=== PATIENT | female | born 1970 | race Two or more races ===

== ENCOUNTER 2017-05-01 13:44 | Inpatient (IN) | payer SELFPAY ==
[~2017-05-01] VITALS: Ht 142.2 cm; Wt 46.2 kg
--- NOTE | ~2017-05-01 | CON ---
[facility] 46 Y [address] ROOM: [place] [address] LOCATION: [facility] ADMIT DATE: 05/01/2017 Consultation DISCHARGE DATE: FAMILY PHYSICIAN: PHYSICIAN, UNKNOWN ATTENDING PHYSICIAN: Parveen Potter REFERRING PHYSICIAN: SOM RAMOS MD REASON FOR CARDIOLOGY CONSULTATION: Bradycardia. HISTORY OF PRESENT ILLNESS: This is a 46-year-old female, patient, who presented to the emergency department with complaints of tonic-clonic seizures. She was found to have a brain mass and current plan is to surgically excise that on 05/06/2017. This consult was requested due to bradycardia and need for evaluation prior to surgery. She denies any chest pain, palpitations, or shortness of breath. Her only pertinent positive review of system is poor appetite due to biting her tongue during one seizure. At the time of this consult, she has no complaints of pain and has just finished with a shower without complication. PAST MEDICAL HISTORY: No noted past medical history prior to this admission. FAMILY HISTORY: The patient's mother had a history of diabetes as well as a myocardial infarction. SOCIAL HISTORY: The patient denies ever using tobacco. She also denies alcohol or illicit drug use. CURRENT MEDICATIONS: 1. Cortrosyn 0.25 mg IV. 2. Keppra 500 mg IV twice daily. 3. Decadron 4 mg p.o. twice daily. 4. Keppra 500 mg p.o. b.i.d. The IV dosing is, if she is unable to swallow the oral Keppra. MEDICATION ALLERGIES: No known medication allergies. REVIEW OF SYSTEMS: Pertinent positive review of systems are listed in the HPI. All other review of systems are evaluated and negative. [facility] AGE: 46 Y [address] ROOM: [id number] [place] [id number] LOCATION: [facility] ADMIT DATE: 05/01/2017 Consultation DISCHARGE DATE: FAMILY PHYSICIAN: PHYSICIAN, UNKNOWN ATTENDING PHYSICIAN: Parveen Potter PHYSICAL EXAMINATION: VITAL SIGNS: Temperature 98.1, pulse 43, respirations 16, blood pressure 117/57, O2 saturation 93% on room air. The patient weighs 49.9 kg. SKIN: Normal for race and warm and dry. EYES: Sclerae are clear. No xanthelasma. ENT: Oral mucosa is pink and moist. No jugular venous distention or carotid bruits. CHEST: Respirations are even and unlabored. Lungs are clear to auscultation. HEART: Regular rate and rhythm. Normal S1, S2. Does have the presence of an S4. ABDOMEN: Soft, nontender. MUSCULOSKELETAL: Gait is normal. EXTREMITIES: Peripheral pulses are palpable. No clubbing, cyanosis, or edema. PSYCH: Alert and oriented. Mood and affect are appropriate. IMPRESSION AND PLAN: Per Dr. Liu. 1. Sinus bradycardia. 2. New onset seizures with new noted brain mass. The patient is most likely going to be able to proceed with surgery without further cardiac interventions. Her echocardiogram will be evaluated for ejection fraction as well as looking for wall motion or valvular abnormalities. Her bradycardia is due to either sick sinus syndrome or increased ICP. So we will continue to monitor, evaluate, and treat as appropriate. Thank you for this consult. Thank you for allowing [facility] to interact in the care of this patient. KYLAH MARTIN APRN FOR BERNY-MD ERI KING/dorisl /[id number] d: 05/04/17 1432 t: 05/19/17 1133, CONSULTATION REPORT
--- NOTE | ~2017-05-01 | CON ---
PATIENT'S NAME: CASSANDRA RENDON [facility] AGE: 46 Y [address] ROOM: [id number] [place], [place] [address] LOCATION: GICU ADMIT DATE: 05/01/2017 Consultation DISCHARGE DATE: FAMILY PHYSICIAN: PHYSICIAN, UNKNOWN ATTENDING PHYSICIAN: Parveen Potter DATE OF CONSULTATION: 05/01/2017 REFERRING PHYSICIAN: SOM RAMOS MD TIME SEEN: 4:00 p.m. HISTORY OF PRESENT ILLNESS: Ms Rendon was with her daughter in the car driving from [place] to apparently either that daughter's home or another daughter's home in [place]. Apparently in the car, she was not driving, but had a generalized witnessed seizure. She apparently had likely bit her tongue or her lip. 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 This cavernoma measured 22 x 19 x 13 mm. It was located in the right posterior temporal region. There was perhaps some slight edema around that area of a cavernoma. There was a subtle sign of some blushing of perhaps small other cavernomas, too small to measure and this was likely seen on the MRI. The patient had normal laboratory results including a complete metabolic panel, CBC. The history of this patient is very obscure with the use of a clerk specialist, as the patient does not speak any [place]. I went over her history. We have found out that she has had seizures in the past going back to around 8 years ago. She had at least 2 generalized seizures a year. Apparently, she had a seizure just as bad as she is experiencing today even in her home. I am not sure if any family members have known about this. I asked the patient as to why she never went to a doctor, she did not have a good answer. All she said through the clerk specialist is she forgot. I asked her about her general medical care and she has extremely poor insight. Based upon her possibly having generalized seizures in the past, it is clear she has also poor judgment. PAST MEDICAL HISTORY: We do not know of any prior medical history and she denies history of hypertension and diabetes. CURRENT MEDICATIONS: Started today is Keppra 1000 mg twice a day. FAMILY HISTORY: PATIENT'S NAME: CASSANDRA RENDON [facility] AGE: 46 Y [address] ROOM: [id number] [place] [id number] LOCATION: [facility] ADMIT DATE: 05/01/2017 Consultation DISCHARGE DATE: FAMILY PHYSICIAN: PHYSICIAN, UNKNOWN ATTENDING PHYSICIAN: Parveen Potter Noncontributory. She denies any seizures in family members. I am not aware at this present time of any family members having diagnosed with cavernomas. SOCIAL HISTORY: She has 5 children. She is not . She lives in [place]. She apparently does not see any doctors, at least from her responses today. REVIEW OF SYSTEMS: The patient presents here with a generalized seizure in the car, not driving apparently. Family members had taken her into the emergency room as they witnessed this ongoing generalized seizure. Apparently, this is a one-time event and the patient was loaded on Keppra after evidence on the CAT scan as well as the followup MRI showed evidence for cavernoma. There was no evidence of any recent bleeding from the cavernoma. The patient denies any prior medical history, though there is some subtle history here suggesting that she had generalized seizures in the past and did really nothing about it and it is unclear as to why she did not. PHYSICAL EXAMINATION: GENERAL: The patient is very sleepy, did not seem to be involved at all in the discussions with the clerk specialist. Seemed to be annoyed and perturbed and only answered questions very briefly, did not want to elaborate. NEUROLOGICAL: Cranial nerves 2 through 12 was grossly intact. Motor exam revealed 5/5 power in the upper and lower extremities proximally and distally. She had no evidence of any pronator drift. Normal sensory exam grossly checked. She withdrew to pain in all her limbs. Her reflexes were symmetric and +2 at the biceps, triceps, brachioradialis, patellar, and ankle jerk reflexes. Plantar reflex is downgoing. NECK: Supple on flexion and extension. There is some minor tenderness at the nape of the neck, both the right and the left and some trapezius crest muscle region tenderness as well. This is at the muscle level, not anywhere deeper. EXTREMITIES: The patient demonstrates full power again at the upper extremities. IMPRESSION: Ms Rendon is a 46-year-old female. The patient has a very poor insight and judgment in general. It sounds by history that she has had generalized seizures in the past, but ignored them nor did she go to any hospital. She says that the event today was very typical of her seizures with scores as hard to be tired and sleepy and knocked out essentially for 2-3 days. I am not sure if any family members were aware of generalized seizures. I am not sure if the patient was driving with these types of seizures. Clearly, she has poor insight. We have put the patient on Keppra 1000 mg twice a day for the patient to stay on this. Due to her poor insight, I am not sure that she will take this medication. Thus, it would be important that any family members PATIENT'S NAME: CASSANDRA RENDON [facility] AGE: 46 Y [address] ROOM: [place] [address] LOCATION: [facility] ADMIT DATE: 05/01/2017 Consultation DISCHARGE DATE: FAMILY PHYSICIAN: PHYSICIAN, KATY ATTENDING PHYSICIAN: Parveen Potter make sure that she takes daily dosing of this medication. Based upon statistical evidence of how to deal with angiomas in the brain, those that do not bleed have a low likelihood that they will not bleed likely in the future in general. Usually, surgery is not done for those that have not bled. The fact that she has had multiple seizures over the course of few years is interesting and that she has likely had this ongoing small cavernous tumor present for many years and really all that is done was likely generalized seizures without any significant post-seizure disability. I doubt that there was any serious hemorrhage from the cavernoma region. The decision as to offer this patient surgery for removal of the tumor versus just medical management with antiseizure medications will be further discussed with Dr. Potter. MD RENATO OMALLEY/richard /[id number] d: 05/02/17 0008 t: 05/08/17 1140, CONSULTATION REPORT
--- NOTE | ~2017-05-01 | ECHO ---
Transthoracic Echocardiography Report (TTE) Demographics Patient Name CASSANDRA DURANT Date of Study 05/02/2017 Patient Number [id number] Visit Number [id number] Date of 1970 Room Number J5011GG Accession Number [id number] Gender Female Age 46 year(s) Referring Tariq Fritz Hose Inspector Jon Grimaldo RVBuzz, Physician [facility] Physician Interpreting Carmen Elizabeth Certified Performance Technologist Physician Supervising Ordering Physician Cortney Mendoza MD, MD/MLP Nurse Stress Plum Packer Conclusions Contractility Score Summary Normal Left Ventricular contractility was noted. Summary Normal cardiac chamber sizes. No significant valvular abnormalities. Procedure Type of Study TTE procedure:2D Echocardiogram. Procedure Date Date: 05/02/2017 Start: 11:19 AM Study Location: Inpatient Portable Technical Quality: Good visualization Indications:Bradycardia. Appropriate Use Criteria: 8 Patient Status: Routine Rhythm: NSR HR: 65 bpm BP: 127/62 mmHg M-Mode/2D Measurements LV Diastolic Dimension: 4.67 cm LV Systolic Dimension: 2.8 cm LV Septum Diastolic: 0.74 cm LV PW Diastolic: 0.64 cm AO Root Dimension: 1.9 cm Cardiac Output: 1.69 l/min LA Dimension: 3.3 cm EF Estimated: 60 % LVOT: 1.4 cm LVOT VTI: 16.9 cm RV Base: 2.66 cm LV Stroke volume: 26 ml RV Length: 7.66 cm TAPSE: 2.01 cm TDI-S': 12.1 cm/s Doppler Measurements AV Peak Velocity: 1.21 m/s MV Peak E-Wave: 1 m/s AV Peak Gradient: 5.86 mmHg MV Peak A-Wave: 0.54 m/s AV Mean Gradient: 3 mmHg MV E/A Ratio: 1.84 LVOT Peak Velocity: 0.76 m/s MV P1/2t: 49 msec TR Gradient:13.99 mmHg PV Peak Velocity: 0.79 m/s Estimated RAP:5 mmHg PV Peak Gradient: 2.5 mmHg Estimated RVSP: 19 mmHg Estimated PASP: 18.99 mmHg E' Septal Velocity: 0.11 m/s A' Septal Velocity: 0.07 m/s E' Lateral Velocity: 0.15 m/s A' Lateral Velocity: 0.07 m/s Findings Left Ventricle Normal left ventricle size and function. Right Ventricle Normal right ventricle structure and function. Left Atrium Normal left atrial size. There is no evidence of patent foramen ovale or atrial septal defect by color Doppler. Right Atrium Normal right atrial size. IVC measures 1.21 cm with inspiratory collapse. Mitral Valve Normal mitral valve structure and function. Trivial mitral regurgitation by color Doppler. Aortic Valve Normal aortic valve structure and function. Tricuspid Valve Normal appearing tricuspid valve. Trivial tricuspid regurgitation by color Doppler. Pulmonic Valve Normal pulmonic valve structure and function. Trivial pulmonic valve regurgitation by color Doppler. Pericardial Effusion No evidence of pericardial effusion. Miscellaneous Visualized portions of the aortic root and ascending aorta appear normal in size. Pleural Effusion No evidence of pleural effusion. Contractility Score LV regional wall motion:(0-Non visualized 1-Normal 2-Hypokinesis 3-Akinesis 4-Dyskinesis 5-Aneurysm) Signature dtt: Clara Morales dtd: 05/02/17 1119 Physician Self Edit
--- NOTE | ~2017-05-01 | CON ---
PATIENT'S NAME: CASSANDRA DURANT [facility] AGE: 46 Y [address] ROOM: [id number] [place], [place] [address] LOCATION: GICU ADMIT DATE: 05/01/2017 Consultation DISCHARGE DATE: FAMILY PHYSICIAN: PHYSICIAN, UNKNOWN ATTENDING PHYSICIAN: Parveen Potter REFERRING PHYSICIAN: SOM HOOKER MD CHIEF COMPLAINT: Seizure, history of unexplained syncope and hypotension in the setting of bradycardia. REASON FOR CONSULTATION: Hypotension. HISTORY OF PRESENT ILLNESS: This is a 46-year-old female who never sought any physician in the past coming here with complaints of tonic-clonic seizure and the patient was evaluated here for CT scan and MRI showed the patient has a right posterior temporal cavernoma. The patient was already seen by neurosurgeon, Dr. Potter and the neurologist Dr. Hooker. The patient currently is on antiseizure medication and right now the plan is to decide about surgical excision of the tumor or not. The patient is still thinking about the decision. Since the patient has been here, she has not had any more seizure. However last night and earlier this morning, the patient had hypotension as low as 70 systolic, MAP in the low 60s, and heart rate was bradycardic as low as 35 and average in the 50, sometimes 40s. The patient tells me that she feels dizzy all the time and she actually had syncope twice in the past, last one was about 6 months ago when she was walking and she feels dizzy and she passed out. She also has had seizure back 8 years ago that was the first time she had a seizure and after that she had 2 seizures each year until this year, this is her first seizure that is why she came here. The patient denies any chest pain, shortness of breath or cough. She has been having very poor appetite. Because of the seizure, she has bitten her tongue and she has pain with chewing. Therefore, she has not eaten anything much for the last 2 days. The patient denies any other symptoms. REVIEW OF SYSTEMS: As mentioned in the history of present illness. All other systems were reviewed and were negative except those mentioned in the history of present illness. PAST MEDICAL HISTORY: 1. 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 2. Unexplained syncope in the past, last time was 6 months ago. 3. Hypotension of unclear etiology. PATIENT'S NAME: CASSANDRA DURANT [facility] AGE: 46 Y [address] ROOM: [address] [place], [place] [address] LOCATION: [facility] ADMIT DATE: 05/01/2017 Consultation DISCHARGE DATE: FAMILY PHYSICIAN: PHYSICIAN, UNKNOWN ATTENDING PHYSICIAN: Parveen Potter ALLERGIES: NO KNOWN DRUG ALLERGIES. HOME MEDICATIONS: None. FAMILY HISTORY: Mother had diabetes and myocardial infarction at old age. She could not remember much about her father. SOCIAL HISTORY: The patient denies any illegal drug or alcohol use. PAST SURGICAL HISTORY: None. PHYSICAL EXAMINATION: VITAL SIGNS: At the time of my dictation; temperature 97.8, heart rate 47, respirations 12, blood pressure 76/57, MAP of 63 and saturation 97% on room air. GENERAL APPEARANCE: Alert and oriented x3. Currently, in no acute distress. HEENT: Pupils equally round and reactive to light. Extraocular muscles intact. Anicteric sclerae. Nasal turbinates are normal bilaterally. Dry oral mucosa. She does have a small superficial ulcer on the right side of the tongue where she bit her tongue during the seizure. CARDIOVASCULAR: Regular rate and rhythm. Normal S1, S2. No murmur. No rubs. No gallops. RESPIRATORY: Clear to auscultation. No rales. No rhonchi. No crackles. No wheezing. ABDOMEN: Soft, nontender, nondistended, bowel sounds present, no mass. EXTREMITIES: No edema in upper or lower extremities. NEUROLOGICAL: The patient is grossly nonfocal. Sensation intact. Muscle strength intact. Cranial nerves 2 through 12 intact. Only complaint is dizziness. No slurred speech. No facial droop. No pronator drift. Babinski negative. Reflexes normal. SKIN: No ulcer. No rash. No cyanosis. LABORATORY DATA: Troponin less than 0.04. CPK 159. White blood cell 7.3, hemoglobin 11.2, hematocrit 35.3, platelet 262. Glucose 99, BUN 7, creatinine 0.7. Sodium 139, potassium 3.6, chloride 107, CO2 19, calcium 8.1, total protein 7.4, albumin 3.4, AST 17, ALT 20, alkaline phosphatase 57, total bilirubin 0.2, magnesium 1.9. Anion gap 16.6. GFR more than 60. INR 1.0, PTT 24, urinalysis negative for UTI. CK-MB 4.3. Urine test negative. PATIENT'S NAME: CASSANDRA DURANT [facility] AGE: 46 Y [address] ROOM: [id number] [place], [place] [address] LOCATION: GICU ADMIT DATE: 05/01/2017 Consultation DISCHARGE DATE: FAMILY PHYSICIAN: PHYSICIAN, UNKNOWN ATTENDING PHYSICIAN: Parveen Potter Prolactin 48.1. IMAGING STUDY: CT of the brain without contrast on 05/01/2017 showed irregular approximately 2 cm sized area of increased attenuation with associated calcification at the periphery of the right parietal lobe. Major differential consideration include vascular malformation and neoplasm. Some acute or subacute hemorrhage associated with this lesion also could be contributed to the CT appearance. MRI of the brain with and without contrast on 05/01/2017 showed cavernoma with chronic hemorrhage in the posterior right temporal lobe. This correlates with CT abnormality. Multiple additional bilateral punctate hypointense foci and gradient suspicious of multiple additional cavernomas/cavernomatosis. Chest x-ray on admission showed no vascular congestion. No infiltrate. ASSESSMENT AND PLAN: 1. Regarding her hypotension of unclear etiology. Differential here could be from the bradycardia. I will get an EKG right now to make sure there is no heart block or any conduction abnormality that could cause her syncope in the past and also this hypotension. Depending on the EKG, she could be suffering from symptomatic bradycardia either from sinus or from heart block either way she may require atropine. I will continue the IV normal saline bolus right now. She is getting the first liter right now. We will check the blood pressure at the end of the bolus. We will encourage oral intake given that she looks dry and dehydrated on examination. I will be giving her a cream for pain relief of oral sore that she got from bting her tongue during seizure episode so that she can have her breakfast without pain while chewing. Depending on the EKG finding, she may require echo given that she has a history of syncope in the past that was never investigated. Cardiology consult could be requested if necessary. Currently, the tests are pending. I will also check blood work again including lactic acid and procalcitonin to rule out sepsis. Further plan will depend on clinical course.I will also check orthostatic vital signs. 2. Regarding her recurrent seizure from brain tumor. Defer to Neurosurgery and Neurology for further care. 3. She is a full code. 4. DVT prophylaxis. Defer to Neurosurgery and Neurology. Time spent in care on the day of consultation 45 minutes where 25 minutes was spent on interview and also on counseling including addressing all the questions and concerns that the patient had and also going over the plan of care with the patient and answered all of her questions to her satisfaction. The remainder of the time was spent on chart review and also on physical PATIENT'S NAME: CASSANDRA DURANT [facility] AGE: 46 Y [address] ROOM: [place] [address] LOCATION: [facility] ADMIT DATE: 05/01/2017 Consultation DISCHARGE DATE: FAMILY PHYSICIAN: PHYSICIAN, UNKNOWN ATTENDING PHYSICIAN: Parveen Potter examination. Further plan will depend on clinical course. JIM RICH MD CC/modl /[id number] d: 05/02/17902 t: 05/02/172119, CONSULTATION REPORT
--- NOTE | ~2017-05-01 | HP ---
[facility] AGE: 46 Y [address] ROOM: [address] [address] LOCATION: [facility] ADMIT DATE: 05/01/2017 History & Physical DISCHARGE DATE: FAMILY PHYSICIAN: PHYSICIAN, UNKNOWN ATTENDING PHYSICIAN: Parveen Potter DATE OF SERVICE: HISTORY OF PRESENT ILLNESS: This 46-year-old lady was admitted through the emergency room. She and her daughter were traveling from [place] to [place] when she developed a seizure. She was then taken to the emergency room by her daughter and the time she go to the emergency room, she had already recovered, she was awake, she was alert. Investigations carried out in the emergency room included a CT scan of the brain that showed a calcification in the right posterior temporal region and went on to do an MRI with and without contrast, which showed the lesion in the right posterior temporal region, which had some old hemorrhages and some calcification. We suggested that this is most likely a cavernoma. She has not had any seizures before, this is the first seizure she ever had. However, the daughter did indicate that she had some fainting spells in the past, the last one was about six months ago, but during those spells, she did not have any tonic-clonic movement, and those spells were not accompanied by any local neurological deficit. In the hospital today, she was complaining primarily of headache in the right suboccipital region as well as pain on both sides of her tongue where she thinks presumably had bitten her tongue during the seizure. She did not have any other complaints. She denies any weakness in the upper or lower extremities. The CT scan as well as the MRI did not show any recent hemorrhages. The MRI did, however, show some old bleeds in the region. The lesion was quite close to the surface. PAST MEDICAL HISTORY: Nil of note. ALLERGIES: NO KNOWN ALLERGIES TO MEDICATION. MEDICATIONS: She is not on any medication at the present time. FAMILY HISTORY: Mother had diabetes and had an MN. No other medical problems in the family. SOCIAL HISTORY: She does not smoke neither she drink alcohol. [facility] AGE: 46 Y [address] [address] LOCATION: [facility] ADMIT DATE: 05/01/2017 History & Physical DISCHARGE DATE: FAMILY PHYSICIAN: PHYSICIAN, UNKNOWN ATTENDING PHYSICIAN: Parveen Potter REVIEW OF SYSTEMS: Apart from the right suboccipital headache and the pain she has in the tongue, review of systems was essentially negative. PHYSICAL EXAMINATION: VITAL SIGNS: On examining her in the hospital today, she is a 46-year-old lady, who is 4 feet and 8 inches tall, 46.4 kg in weight. Blood pressure was 113/55, the pulse was 60 regular, respirations were 12, temperature was 98.6. GENERAL: She was awake. She was alert. Her Tres Coma score was 15. HEENT: She was normocephalic. NECK: There was some discomfort on palpating the suboccipital region on the right side. No other problems. There was no restriction of movement of the cervical spine. CHEST: Clear. HEART: Heart rate was regular. Heart sounds were normal. ABDOMEN: Soft. No area of tenderness. No masses palpable. NEUROLOGIC: Her cranial nerve examination was normal. The motor examination was normal. The sensory examination was normal. Reflexes were normal. Toes were downgoing. IMPRESSION: 1. Right posterior temporal cavernoma. 2. Seizures grand mal. SUGGESTION: I did this explained this to her and her daughter and my recommendation would be that she will need to have the cavernoma excised especially as it is really close to the surface and as I indicated to them that cavernomas do not commonly bleed, but they could hemorrhage, the other option would be to just control her seizures and watch it. She is going to think about it and then let us know. I did tell her and her daughter that their trip to [place] should be canceled. MD NAMAN CHAMORRO/richard /[id number] D: 316 T: 609 HISTORY & PHYSICAL
--- NOTE | ~2017-05-01 | NDGEN ---
PATIENT'S NAME: CASSANDRA DURANT [facility] AGE: 46 Y [address] ROOM: [address] [address] LOCATION: [facility] ADMIT DATE: 05/01/2017 Neurodiagnostics DISCHARGE DATE: FAMILY PHYSICIAN: PHYSICIAN, UNKNOWN ATTENDING PHYSICIAN: Parveen Potter PROCEDURE: ELECTROENCEPHALOGRAM DATE OF PROCEDURE: 05/02/2017 INDICATION: This 46-year-old female patient who clearly had a generalized witnessed seizure. The patient is known to have an intracranial small mass that is probably a vascular abnormality and likely associated with her having a generalized seizure. The general background rhythm seen in this 20-lead EEG was completely symmetric throughout the whole recording. Background rhythm consisted of between 9 to 12 hertz alpha rhythm that remained stable throughout the whole recording. At certain times when the patient was asleep, the alpha rhythm came somewhat sinusoidal, but this is a normal type of variant. At no time was there any epileptiform features seen and no seizures were recorded. IMPRESSION: Normal EEG. MD RENATO OMALLEY/richard /[id number] dtt: 05/08/17 1145 , SOM RAMOS dtd: 05/03/17 1125
--- NOTE | ~2017-05-01 | DS ---
PATIENT'S NAME: CASSANDRA DURANT [facility] AGE: 46 Y [address] ROOM: [id number] [place] [address] LOCATION: [facility] ADMIT DATE: 05/01/2017 Discharge Summary DISCHARGE DATE: 05/10/2017 FAMILY PHYSICIAN: Physician, Unknown ATTENDING PHYSICIAN: Parveen Potter This is a 46-year-old female who was traveling to [place] from [place], developed a grand mal seizure and was brought to the emergency room. In the emergency room, she was initially drowsy, eventually she did come around and apart from headaches that she was complaining of, there was no focal neurological deficit. Investigations carried out included an MRI of the brain, which showed a left posterior temporal cavernoma. She had in addition to the regular MRI a Stealth MRI primarily because the lesion was amenable to surgical excision. We decided to go ahead and take her to the operating room to excise the cavernoma. This was carried out on the stealth neuronavigational system on the , which is 5 days from the time of admission. While she was in the hospital, she did not have any further seizures. She was put on Keppra for seizure control. Following the surgery 5 days after admission even though we used the Stealth MRI neuronavigational system, we really did not get the cavernoma per se, we were at the periphery of the cavernoma and got some abnormal vessels in that periphery and a repeat MRI postop still showed that the cavernoma was still quite prominent. It was just posterior and inferior to where we were. We consequently took her back to the operating room, reopened the craniotomy and this time around, we were able to completely excise the cavernoma uneventfully. There was no neurological deficit accompanying the surgical procedure. She did very well postoperatively and was eventually discharged home. We sent her home with the operative summary, the admitting note, and also the relevant reports of the initial MRI and the final postop MRI. We also sent her home with the pathology report and we advised that she should cancel her trip to [place] and that she should see her family doctor a week from the time of surgery to take the skin otilia out and a week from the time of her second surgery to take the skin otilia out. Hopefully, the family doctor will be able to arrange for her to be seen by neurosurgeon for followup 3 weeks from the time of discharge. FINAL DIAGNOSES: 1. Right posterior temporal cavernoma. 2. Seizures. ADDENDUM: We also gave her a list of the medications. We recommended that she should continue on it. PATIENT'S NAME: CASSANDRA DURANT [facility] AGE: 46 Y [address] ROOM: [place] [address] LOCATION: [facility] ADMIT DATE: 05/01/2017 Discharge Summary DISCHARGE DATE: 05/10/2017 FAMILY PHYSICIAN: Physician, Unknown ATTENDING PHYSICIAN: Parveen Potter MD NAMAN CHAMORRO/dorisl /[id number] d: 06/07/172000 t: 07/09/17 132, DISCHARGE SUMMARY
--- NOTE | ~2017-05-01 | ER ---
[facility] AGE[facility] 46 Y [address] ROOM: [place] [address] LOCATION: [facility] ADMIT DATE: 05/01/2017 ER/Outpatient Report DISCHARGE DATE: FAMILY PHYSICIAN: PHYSICIAN, UNKNOWN ATTENDING PHYSICIAN: Parveen Potter Time of Arrival: 1341 hours. Time of Evaluation: 1341 hours. CHIEF COMPLAINT: Seizure. HISTORY OF PRESENT ILLNESS: The patient is a 46-year-old female who presents to the emergency department today with chief complaint of seizure. She is accompanied by her daughter who did witness this episode. 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 Her daughter reports that she had shaking all of her body seizure for approximately 2-3 minutes. She complains of pain to the back, right side of her head, as well as her tongue. She denies any history of similar episodes in the past. She does have a history of syncope. This is different from her previous episodes. She does feel dizzy. Denies any fevers or chills. No nausea or vomiting. No chest pain, no cough, no shortness of breath. PAST MEDICAL HISTORY: Syncope. PAST SURGICAL HISTORY: None. SOCIAL HISTORY: The patient denies any tobacco, alcohol, or illicit drug use. ALLERGIES: NO KNOWN DRUG ALLERGIES. MEDICATIONS: None. PRIMARY CARE DOCTOR: None. REVIEW OF SYSTEMS: All systems are reviewed by myself and are negative with the exception of those discussed in HPI and past medical history. PATIENT'S NAME: BHARGAV [facility] AGE: 46 Y [address] ROOM: [place] [address] LOCATION: [facility] ADMIT DATE: 05/01/2017 ER/Outpatient Report DISCHARGE DATE: FAMILY PHYSICIAN: PHYSICIAN, UNKNOWN ATTENDING PHYSICIAN: Parveen Potter PHYSICAL EXAMINATION: VITAL SIGNS: Weight 47 kg. Blood pressure 123/89, pulse 87, respiratory rate 20, temperature 98.8, and oxygen saturation 96% on room air. GENERAL: The patient is a 46-year-old female, appears stated age, in no acute distress. HEENT: Normocephalic, atraumatic. Pupils are equal, round, and reactive to light and accommodation. Extraocular motions are intact. Nares are patent bilaterally. TMs are clear. Oropharynx is clear. NECK: Supple. There is no nuchal rigidity. No midline tenderness to palpation. CARDIOVASCULAR: Regular rate and rhythm. No murmurs, rubs, or gallops. LUNGS: Clear to auscultation bilaterally. No wheezes, rales, or rhonchi. ABDOMEN: Soft, nontender, and nondistended. No rebound, rigidity, or guarding. MUSCULOSKELETAL: The patient moves all 4 extremities. NEUROLOGICAL: GCS 15. Alert and oriented x4. Cranial nerves 2 through 12 are intact. Equal emt dispatcher strength bilaterally. No pronator drift. Downward going toes. SKIN: Warm and dry. LABORATORY DATA AND DIAGNOSTIC DATA: Labs and x-rays are obtained. CBC is unremarkable. CMP is unremarkable except for a CO2 of 19. LFTs normal. Magnesium is normal. CK, CK-MB, and troponin unremarkable. Serum HCG is less than 1. Coags are normal. Prolactin is 48.1. CT scan of the brain is obtained, I have discussed results with the radiologist, it does show a right posterior brain lesion, vascular malformation versus tumor, there is no swelling. IMPRESSION: 1. New onset seizure. 2. Brain lesion. 3. Initial visit. EMERGENCY DEPARTMENT COURSE: The patient was brought back to the examination room. Seen and evaluated by myself. IV is established. Laboratory analysis and imaging are obtained as described above. I have discussed the results with the patient. We have used the [place] system for assistance in translation. Her questions are answered. I have discussed the case with Dr. Potter who is on for Neurosurgery. He has recommended loading with Keppra and has requested an MRI with and without IV contrast of the brain. This is ordered. The patient will be admitted under the care of Dr. Potter in stable condition. PATIENT'S NAME: CASSANDRA DURANT [facility] AGE: 46 Y [address] ROOM: [address] [place] [id number] LOCATION: [facility] ADMIT DATE: 05/01/2017 ER/Outpatient Report DISCHARGE DATE: FAMILY PHYSICIAN: PHYSICIAN, UNKNOWN ATTENDING PHYSICIAN: Parveen Potter E DO VALERI CARTAGENA/modl /[id number] d: 05/01/172121 t: 05/04/17 0749, OUTPATIENT REPORT
--- NOTE | ~2017-05-01 | OR ---
PATIENT'S NAME: CASSANDRA DURANT [facility] AGE: 46 Y [address] ROOM: [address] [address] LOCATION: [facility] ADMIT DATE: 05/01/2017 OR/Procedure Report DISCHARGE DATE: FAMILY PHYSICIAN: PHYSICIAN, UNKNOWN ATTENDING PHYSICIAN: Parveen Potter SURGEON: Parveen Potter MD FRUIT CUTTER: DATE OF PROCEDURE: 05/07/2017 PREOPERATIVE DIAGNOSIS: Right posterior temporal cavernoma. POSTOPERATIVE DIAGNOSIS: Right posterior temporal cavernoma. OPERATION PROPOSED: 1. Reopening of right temporoparietal craniotomy and a posterior inferior extension of the craniotomy and total excision of cavernoma. 2. Microsurgical technique with the use of the microscope. 3. Stealth neuronavigational system to assist in total excision of cavernoma. 4. Insertion of Vizcaino head clamp. PREAMBLE: This 46-year-old lady was taken to the operating room yesterday and under Stealth neuronavigation had a right temporoparietal craniotomy and using the Stealth we thought we gone around the lesion and totally excised it; however, the postop MRI that was done today showed that we were really just superior to the cavernoma and after lengthy discussion with her she agreed that we should go back in to excise the cavernoma. What was interesting here was that during the procedure that was carried out yesterday, we used the Stealth neuronavigational system for this and using the Stealth it indicated that we were around the lesion; so, it was surprising to see the MRI today showing that we really were just superior to the lesion. The feeling here is that this could have been secondary to the shifts. After lengthy discussion with her, where she agreed that we should go back in and completely excise the lesion in order to prevent a possible catastrophic intracerebral hemorrhage from the cavernoma. DESCRIPTION OF PROCEDURE: Under general anesthesia, the patient was positioned supine and a Vizcaino head clamp was applied and the patient's head was turned to the left-side, a sandbag underneath the right shoulder. After she had been positioned in bed, we then went ahead and registered the Stealth system into the computer; and after this had been done, we then went ahead and prepped and draped the previous incision. The patient was given mannitol and 2 g of Ancef prior to starting the procedure. Next, the otilia were removed, the old wound was opened; however, we had to extend the incision posteriorly and inferiorly and the wound was then reflected with fish hooks. Next, the PATIENT'S NAME: CASSANDRA DURANT [facility] AGE: 46 Y [address] ROOM: [address] [address] LOCATION: [facility] ADMIT DATE: 05/01/2017 OR/Procedure Report DISCHARGE DATE: FAMILY PHYSICIAN: PHYSICIAN, UNKNOWN ATTENDING PHYSICIAN: Parveen Potter screws were removed from the plates that were used to hold the bone flap to the rest of the skull. Having done that, we then dissected the dura away from the undersurface of the bone posteriorly and inferiorly to where we were; and in this situation, we went ahead and used the Stealth also and using the Stealth, it did confirm that we had adequate exposure from the extension that we had carried out. Next, the dura was then opened primarily in this posterior inferior region and also the posterior part of the dural stitch that we had yesterday. The dura was then sutured to the scalp in order to reflect it and give us exposure. After that was done, we then used the Stealth to confirm our location. There was no gross abnormality on the surface of the brain; however, as was noted in the MRI, the vein of Kenia was crossing over the cavernoma. We then started with a cerebrotomy posterior aspect of the middle temporal gyrus; and on doing this, we came into the cavernoma; so, we started dissecting in the plane between the cavernoma and this was mostly the gliotic plane with some xanthochromic discoloration of the white matter, secondary to the small hemorrhages that she has had in the past. The big problem that initially we had was that the cavernoma did extend into the region of the inferior temporal lobe with the vein of Kenia straddling it. We therefore elected to work on either side of the vein of Kenia; and so as a result of this, we carried out a cerebrotomy on the inferior part of the vein in the posterior portion of the inferior temporal gyrus. On doing this, we did come across the inferior and anterior aspects of the cavernoma and so we started dissecting this from that plane and next we by just going in the plane between the cavernoma and the gliotic brain, we were able to completely surround the cavernoma and in order to get to the portion underneath or medial to the vein of Kenia, we did suck out the gliotic white matter that was covering the lateral aspect of the cavernoma the portion that was directly medial to the vein. After we had done this, we were able to completely surround the cavernoma and deliver it as a unit. After this was done, we explored the cavity left behind. There was no abnormality that we could see and hemostasis was achieved by using bipolar cautery. We did not run into any massive hemorrhage. The total blood loss was estimated at about 250 mL. After we had completely excised the lesion, we used the bipolar for hemostasis and this whole procedure was carried out microsurgically using microscope. Next, the dura was then sutured; however, there was not we could not achieve a watertight closure. Consequently, we put a piece of dural repair; and using that, we covered the hole of the dura with the dural repair. Next, the bone flap was then screwed to the rest of the skull including the portion that we had added on and the temporalis muscle and fascia the posterior superior portion that we had incised yesterday was also closed with 3-0 Vicryl and the scalp was then closed in the usual 2 layer fashion using 3-0 Vicryl for the galeal layer and otilia for the scalp. The patient tolerated the procedure well and was taken to the recovery room. PATIENT'S NAME: CASSANDRA DURANT [facility] AGE: 46 Y [address] [place]: [id number] [address] LOCATION: [facility] ADMIT DATE: 05/01/2017 OR/Procedure Report DISCHARGE DATE: FAMILY PHYSICIAN: PHYSICIAN, UNKNOWN ATTENDING PHYSICIAN: Parveen Potter MD NAMAN CHAMORRO/richard /[id number] d: 05/08/17 0158 t: 06/07/17 1221, OPERATIVE SUMMARY
--- NOTE | ~2017-05-01 | OR ---
PATIENT'S NAME: CASSANDRA DURANT [facility] AGE: 46 [address] ROOM: [address] [address] LOCATION: [facility] ADMIT DATE: 05/01/2017 OR/Procedure Report DISCHARGE DATE: FAMILY PHYSICIAN: PHYSICIAN, UNKNOWN ATTENDING PHYSICIAN: Parveen Potter SURGEON: Parveen Potter MD SENIOR INSIGHT MANAGER INTERNATIONAL: DATE OF PROCEDURE: 05/06/2017 PREOPERATIVE DIAGNOSIS: Right posterior temporal lesion/cavernoma. POSTOPERATIVE DIAGNOSIS: Right posterior temporal lesion/cavernoma. OPERATIONS PROPOSED AND PERFORMED: 1. Right parietotemporal craniotomy and total excision of lesion using the Stealth neuronavigational system. 2. Stealth neuronavigation. 3. Microscope, this was a microsurgical operation. DESCRIPTION OF PROCEDURE: Under general anesthesia, the patient was positioned supine, the head tilted to the left. The right temporoparietal region inferior portion was prepped and draped in the usual manner after we had positioned the patient in a Vizcaino head clamp. Next, we then went ahead and registered the Stealth neuronavigational system onto the computer noting the standard points over the tip of the nose, the midline in the supraorbital region as well as over the left orbit. Following which, we then traced with the quite a bit of tracing on the skin using the [employer] Vantage[employer] wand. Having registered all these points, we were then able to use the wand to delineate the extent of the lesion on the scalp. Having done that, now the parietotemporal region was then prepped and draped in the usual fashion. Next, a U-shaped incision was then carried out the open mouth of the U inferiorly and it was such that the scalp incision encompassed the lesion both its anterior, inferior, posterior, and superior limits. Next, the pericranium and the posterior portion of the temporalis muscle were then incised using the Bovie. The scalp on pericranium as well as the remnants of the temporalis muscle were reflected as a unit. Two melba holes were carried out inferiorly in the inferior portion of the temporal squama and a parietotemporal free flap was then removed. After that was done, we then used the wand to further delineate the lesion in the dura and it just confirmed that the lesion was within the limits of the craniotomy. Next, dura was then opened based inferiorly and on doing this, the lesion was not visible on the surface as I thought it would be. Next, using the wand, I was able to delineate the lesion superficially through the anterior inferior and the lesion appeared to be above the inferior part of the supramarginal gyrus and working between the superotemporal gyrus and the supramarginal gyrus worked in the sulcus between PATIENT'S NAME: CASSANDRA DURANT [facility] AGE: 46 Y [address] ROOM: [id number] [place] [id number] LOCATION: [facility]ICU ADMIT DATE: 05/01/2017 OR/Procedure Report DISCHARGE DATE: FAMILY PHYSICIAN: , KATY ATTENDING PHYSICIAN: Parveen Potter this and went in the prominent vessels, however, I could not really working in this area using microsurgical technique brought in the microscope. I really could not see the lesion on this, I think it was because the lesion was within the hemisphere. Having done that, I noted some prominent vessels, arteries, and veins which we cauterized and incised; and I then had to go into the inferior part of the supramarginal gyrus, which was where the lesion was and excised this portion of the supramarginal gyrus. There were no gross abnormalities I could see except that there were a lot of small vessels that were oozing that I had to cauterize. Using the [employer] neuronavigational system, I was able to confirm that I was with anterior, posterior, superior, and inferior regions of the lesion. Having done that, we then concentrated over the medial aspect and as we went medially, we got into the temporal horn of the ventricle which told us that we were really the medial limits of the lesion itself, so we cleaned off the whole area and this hemostasis was achieved during this operation using the bipolar cautery and this whole procedure was carried out microsurgically. At the end, I used the wand again to get the various limits of the lesion and we were within the various limits of the lesion both anterior, posterior, inferior, superior as well as medial. After that was done and I was satisfied that there was really no abnormally oozing vessels that I could see, the wound was thoroughly irrigated with bacitracin irrigation because there was some fluid coming into the wound from the small portion of the ventricle that we got into the wall. I then put in 2 pieces of Surgicel to cover this area. Next, the wound was then closed in layers, first the dura. Next, the bone flap was screwed to the rest of the skull, temporalis muscle and fascia were sutured together, and the scalp was then closed in the usual 2-layer fashion. We gave the patient an extra dose of Keppra 500 mg during the procedure in addition to giving 1 gram of Ancef prior to beginning the procedure. The patient tolerated the procedure well and was taken to the recovery room. MD NAMAN CHAMORRO/richard /[id number] d: 05/06/173 t: 06/07/17 1219, OPERATIVE SUMMARY
[2017-05-01 14:00] LABS: BASOPHIL % 0.4 %; EOSINOPHIL # 0.1 K/uL (0.0-0.5); EOSINOPHIL % 1.6 %; HEMATOCRIT 35.3 % (33.0-46.0); HEMOGLOBIN 11.2 g/dL (10.0-15.0); IMMATURE GRANULOCYTE % 0.3 %; LYMPHOCYTE # 1.7 K/uL (0.8-4.0); LYMPHOCYTE % 23.2 %; MCH 24.6 pg (27.0-34.0); MCHC 31.7 gm/dL (32.0-36.5); MCV 77.6 fl (83.0-98.0); MONOCYTE # 0.6 K/uL (0.0-1.0); MONOCYTE % 8.2 %; MPV 9.9 fl (9.4-12.4); NEUTROPHIL # (ANC) 4.9 K/uL (1.8-7.8); NEUTROPHIL % 66.3 %; NRBC % 0 /100WBC (0-0.00); PLATELET COUNT 262 K/uL (150-450); RBC 4.55 M/uL (3.50-5.50); RDW-CV 19.5 % (11.9-14.6); WBC 7.3 K/uL (4.0-11.0)
[2017-05-01 14:08] LABS: INR - (THERAPEUTIC) 1.01 (0.92-1.07); PROTIME 10.6 SECONDS (9.8-11.4); PTT 24 SECONDS (25-32)
[2017-05-01 14:19] LABS: ALBUMIN 3.4 gm/dL (3.5-5.0); ALK PHOS 57 IU/L (33-138); ALT 20 IU/L (12-78); ANION GAP 16.6 (10.0-19.0); AST 17 IU/L (10-40); BLOOD UREA NITROGEN 7 mg/dL (6-24); CALCIUM 8.1 mg/dL (8.5-10.5); CHLORIDE 107 mMol/L (96-110); CO2 19 mMol/L (22-32); CPK 159 IU/L (21-215); CREATININE 0.7 mg/dL (0.5-1.1); ESTIMATED GFR (MDRD EQUATION) > 60; MAGNESIUM 1.9 mg/dL (1.8-2.6); POTASSIUM 3.6 mMol/L (3.7-5.1); SODIUM 139 mMol/L (135-145); TOTAL BILIRUBIN 0.2 mg/dL (0.0-1.5); TOTAL PROTEIN 7.4 g/dL (6.0-8.4)
[2017-05-01 17:17] LABS: BILIRUBIN URINE NEGATIVE (NEGATIVE); BLOOD URINE NEGATIVE /UL (NEGATIVE); COLOR URINE STRAW (YELLOW); GLUCOSE URINE NEGATIVE (NEGATIVE); KETONE URINE NEGATIVE (NEGATIVE); LEUKOCYTES URINE NEGATIVE /UL (NEGATIVE); NITRITE URINE NEGATIVE (NEGATIVE); PROTEIN URINE NEGATIVE (NEGATIVE); TURBIDITY URINE CLEAR (CLEAR); UROBILINOGEN URINE NORMAL (NORMAL)
[2017-05-02] MEDS ORDERED: ALEVE220 MG PO (01:04)
[2017-05-02 08:12] LABS: BASOPHIL % 0.2 %; EOSINOPHIL # 0.1 K/uL (0.0-0.5); HEMATOCRIT 29.6 % (33.0-46.0); HEMOGLOBIN 9.1 g/dL (10.0-15.0); IMMATURE GRANULOCYTE % 0.2 %; LYMPHOCYTE # 2.2 K/uL (0.8-4.0); LYMPHOCYTE % 35.8 %; MCH 24.9 pg (27.0-34.0); MCHC 30.7 gm/dL (32.0-36.5); MCV 81.1 fl (83.0-98.0); MONOCYTE # 0.7 K/uL (0.0-1.0); MONOCYTE % 10.6 %; MPV 10.1 fl (9.4-12.4); NEUTROPHIL # (ANC) 3.1 K/uL (1.8-7.8); NEUTROPHIL % 51.2 %; NRBC % 0 /100WBC (0-0.00); RBC 3.65 M/uL (3.50-5.50); RDW-CV 20.1 % (11.9-14.6); WBC 6.1 K/uL (4.0-11.0)
[2017-05-02 08:13] LABS: PLATELET COUNT 171 K/uL (150-450)
[2017-05-02 08:31] LABS: ANION GAP 9.8 (10.0-19.0); BLOOD UREA NITROGEN 5 mg/dL (6-24); CHLORIDE 115 mMol/L (96-110); CO2 23 mMol/L (22-32); CPK 132 IU/L (21-215); CREATININE 0.4 mg/dL (0.5-1.1); ESTIMATED GFR (MDRD EQUATION) > 60; MAGNESIUM 1.9 mg/dL (1.8-2.6); POTASSIUM 3.8 mMol/L (3.7-5.1); SODIUM 144 mMol/L (135-145)
[2017-05-02 08:33] LABS: CALCIUM 6.6 mg/dL (8.5-10.5)
[2017-05-05 06:40] LABS: ALBUMIN 2.9 gm/dL (3.5-5.0); BLOOD UREA NITROGEN 10 mg/dL (6-24); CALCIUM 7.8 mg/dL (8.5-10.5); CHLORIDE 111 mMol/L (96-110); CO2 26 mMol/L (22-32); CREATININE 0.6 mg/dL (0.5-1.1); ESTIMATED GFR (MDRD EQUATION) > 60; PHOSPHORUS 3.8 mg/dL (2.5-4.9); SODIUM 143 mMol/L (135-145)
[2017-05-05 08:50] LABS: HEMOGLOBIN 9.9 g/dL (10.0-15.0)
[2017-05-06 15:30] LABS: PCO2 39 mmHg (35-45); PO2 81 mmHg (80-90)
[2017-05-06 15:31] LABS: BICARBONATE 23.8 mmol/L (18.0-23.0); POTASSIUM 3.8 mEq/L (3.7-5.1); SODIUM 143 mEq/L (135-145)
[2017-05-07 01:46] LABS: ALBUMIN 2.6 gm/dL (3.5-5.0); ANION GAP 9.8 (10.0-19.0); BLOOD UREA NITROGEN 11 mg/dL (6-24); CHLORIDE 111 mMol/L (96-110); CO2 26 mMol/L (22-32); CREATININE 0.4 mg/dL (0.5-1.1); PHOSPHORUS 3.3 mg/dL (2.5-4.9); POTASSIUM 3.8 mMol/L (3.7-5.1); SODIUM 143 mMol/L (135-145)
[2017-05-07 01:48] LABS: CALCIUM 6.8 mg/dL (8.5-10.5); ESTIMATED GFR (MDRD EQUATION) > 60
[2017-05-07 05:23] LABS: HEMATOCRIT 28.7 % (33.0-46.0); HEMOGLOBIN 8.8 g/dL (10.0-15.0)
[2017-05-07 05:38] LABS: ALBUMIN 2.6 gm/dL (3.5-5.0); ANION GAP 8.5 (10.0-19.0); BLOOD UREA NITROGEN 9 mg/dL (6-24); CHLORIDE 110 mMol/L (96-110); CO2 27 mMol/L (22-32); CREATININE 0.5 mg/dL (0.5-1.1); ESTIMATED GFR (MDRD EQUATION) > 60; PHOSPHORUS 3.1 mg/dL (2.5-4.9); POTASSIUM 3.5 mMol/L (3.7-5.1); SODIUM 142 mMol/L (135-145)
[2017-05-07 05:41] LABS: CALCIUM 6.9 mg/dL (8.5-10.5)
[2017-05-08 06:06] LABS: ALBUMIN 2.7 gm/dL (3.5-5.0); ANION GAP 8.6 (10.0-19.0); BLOOD UREA NITROGEN 6 mg/dL (6-24); CHLORIDE 109 mMol/L (96-110); CO2 28 mMol/L (22-32); CREATININE 0.4 mg/dL (0.5-1.1); ESTIMATED GFR (MDRD EQUATION) > 60; PHOSPHORUS 3.2 mg/dL (2.5-4.9); POTASSIUM 3.6 mMol/L (3.7-5.1); SODIUM 142 mMol/L (135-145)
[2017-05-08 06:10] LABS: CALCIUM 7.4 mg/dL (8.5-10.5)
[2017-05-10] MEDS ORDERED: KEPPRA500 MG PO (17:57)
[2017-05-10] MEDS ORDERED: PERCOCET 5-3251 EACH PO (17:58)
[2017-05-10] MEDS ORDERED: "\\\"PREP SPRAY\\\"-TIN4 OZ" (17:58)
== END 2017-05-10 19:35 | disposition disaster alternative care site (69) | DRG 25 ==
LOC: GMED 13:44 → GICU 15:53
PROVIDERS: Anesthesiology; Emergency Medicine; Internal Medicine; ADMIT Neurological Surgery
PROC: 005 Central Nervous System and Cranial Nerves, Destruction (ICD-10-PCS; principal; 2017-05-06)
DX: Q28.3 Other malformations of cerebral vessels (principal); G93.6 Cerebral edema; G40.409 Other generalized epilepsy and epileptic syndromes, not intractable, without status epilepticus; I95.9 Hypotension, unspecified; D18.01 Hemangioma of skin and subcutaneous tissue; Z86.79 Personal history of other diseases of the circulatory system; R00.1 Bradycardia, unspecified
CPT/HCPCS: A9577; C1713; C1763; J0461; J0690; J0780; J0834; J1100; J1720; J1953; J2001; J2270; J2405; J3010; J7030; J7040

== ENCOUNTER → 2017-05-01 | Outpatient (CLI) | payer SELFPAY ==
[~2017-05-01] MED LIST: "\\\"PREP SPRAY\\\"-TIN4 OZ"; ALEVE220 MG PO; KEPPRA500 MG PO; PERCOCET 5-3251 EACH PO
== END | disposition disaster alternative care site (69) ==
LOC: GAMB 13:13
DX: R53.1 Weakness (principal); R40.20 Unspecified coma